=== PATIENT | female | born 1955 | race Caucasian/White ===

== ENCOUNTER → 2017-05-06 | Outpatient (CLI) | payer OTHER | LOC: FIMAGING 10:17 | PROVIDERS: ATTEND Internal Medicine Interventional Cardiology | DX: E78.5 Hyperlipidemia, unspecified (principal) ==

== ENCOUNTER → 2017-05-28 | Outpatient (CLI) | payer OTHER | LOC: FIMAGING 12:02 | PROVIDERS: ATTEND Family Medicine | DX: Z12.31 Encounter for screening mammogram for malignant neoplasm of breast (principal); Z80.3 Family history of malignant neoplasm of breast | CPT/HCPCS: G0202 ==

== ENCOUNTER → 2017-10-17 | Outpatient (CLI) | payer OTHER | LOC: FIMAGING 12:26 | PROVIDERS: ATTEND Psychiatry & Neurology Neurology | DX: G40.209 Localization-related (focal) (partial) symptomatic epilepsy and epileptic syndromes with complex partial seizures, not intractable, without status epilepticus (principal) ==

== ENCOUNTER → 2018-06-06 | Outpatient (CLI) | payer OTHER | LOC: FIMAGING 12:04 | PROVIDERS: ATTEND Family Medicine | DX: Z12.31 Encounter for screening mammogram for malignant neoplasm of breast (principal); Z80.3 Family history of malignant neoplasm of breast ==

== ENCOUNTER → 2018-10-17 | Outpatient (CLI) | payer OTHER | LOC: FIMAGING 10:47 | PROVIDERS: ATTEND Family Medicine | DX: N63.11 Unspecified lump in the right breast, upper outer quadrant (principal); R59.0 Localized enlarged lymph nodes ==

== ENCOUNTER → 2018-11-03 | Outpatient (CLI) | payer OTHER ==
[~2018-11-03] MED LIST: BUPIVACAINE 0.5% 30 ML SDV ONE; LIDOCAINE 1% 300 MG/30 ML SDV ONE; THROMBIN (BOVINE) 5,000 UNIT VIAL TP ONE
== END ==
LOC: FIMAGING 07:28
PROVIDERS: ATTEND Family Medicine
PROC: 0HBT3ZX Excision of Right Breast, Percutaneous Approach, Diagnostic (ICD-10-PCS; principal; 2018-11-03)
DX: D05.01 Lobular carcinoma in situ of right breast (principal)

== ENCOUNTER → 2018-11-12 | Outpatient (CLI) | payer OTHER ==
[~2018-11-12] MED LIST changes: -BUPIVACAINE 0.5% 30 ML SDV ONE; +GADOBUTROL 10 ML VIAL IVP ONE; -LIDOCAINE 1% 300 MG/30 ML SDV ONE; -THROMBIN (BOVINE) 5,000 UNIT VIAL TP ONE
== END ==
LOC: FIMAGING 07:44
PROVIDERS: ATTEND Family Medicine
DX: C50.911 Malignant neoplasm of unspecified site of right female breast (principal); R59.0 Localized enlarged lymph nodes
CPT/HCPCS: A9585; C8908

== ENCOUNTER 2018-12-11 06:37 | Observation (INO) | payer OTHER ==
[2018-12-11] MEDS ORDERED: LR 1,000 ML IV ONE (06:50)
[2018-12-11] MEDS ORDERED: BACITRACIN ZINC 0.5 OZ OINTTUBE TP ONE (07:19)
[2018-12-11] MEDS ORDERED: METHYLENE BLUE 0.5% 50 MG/10 ML AMP ONE (07:20)
[2018-12-11] MEDS ORDERED: GENTAMICIN SULFATE 80 MG/2 ML VIAL ONE (07:20)
[2018-12-11] MEDS ORDERED: BACITRACIN 50,000 UNITS/10 ML SYR IRR ONE (07:21)
[2018-12-11] MEDS ORDERED: ceFAZolin 1 GM/5 ML SYR ONE (07:21)
--- NOTE | 2018-12-11 07:59 | PDHPUP ---
History & Physical Update H&P update statement: This history and physical update is based on an assessment of the patient which was completed after admission or registration (within 24 hours), but prior to the surgery/procedure. H&P update: H&P reviewed & patient examined, no change in patient's condition since H&P completed
[2018-12-11] MEDS ORDERED: MIDAZOLAM 2 MG/2 ML VIAL IVP ONE (08:40)
--- NOTE | 2018-12-11 08:40 | PDANEPAE ---
ANE History of Present Illness here for R breast mastectomy ANE Past Medical History - Cardiovascular History Hx Hypertension: No Hx Arrhythmias: No Hx Chest Pain: No Hx Coronary Artery / Peripheral Vascular Disease: No Hx CHF / Valvular Disease: No Hx Palpitations: No - Pulmonary History Hx COPD: No Hx Asthma/Reactive Airway Disease: No Hx Recent Upper Respiratory Infection: No Hx Oxygen in Use at Home: No Hx Sleep Apnea: No Sleep Apnea Screening Result - Last Documented: Negative Pulmonary History Comment: PNA 20 YRS AGO - Neurologic History Hx Cerebrovascular Accident: No Hx Seizures: No Hx Dementia: No Neurologic History Comment: SEIZURE DISORDER - LAST ONE YR AGO - Endocrine History Hx Diabetes: No - Renal History Hx Renal Disorders: No - Liver History Hx Hepatic Disorders: No - Neurological & Psychiatric Hx Hx Neurological and Psychiatric Disorders: No - Cancer History Hx Cancer: No Cancer History Comment: BREAST SURG. MOHS - Congenital Disorder History Hx Congenital Disorders: No - GI History Hx Gastrointestinal Disorders: No - Other Health History Other Health History: NEG - Chronic Pain History Chronic Pain: No - Surgical History Prior Surgeries: L TONIE. C SECTION ANE Review of Systems Review of systems is: negative Review of Systems: - Exercise capacity Exercise capacity: <4 METS METS (RN): 6 METS ANE Patient History - Allergies Allergies/Adverse Reactions: No Known Allergies Allergy (Verified 12/10/18 14:04) - Home Medications Home medications: home medication list seen and reviewed Home Medications: Acetaminophen [Tylenol 325mg (*)] 325 mg PO DAILY PRN 12/10/18 [Last Taken Unknown] Atorvastatin Calcium [Lipitor 40 mg (*)] 40 mg PO DAILY 12/10/18 [Last Taken Unknown] Citalopram [CeleXA] 20 mg PO DAILY 12/10/18 [Last Taken Unknown] levETIRAcetam [Keppra 500 mg (*)] 100 mg PO DAILY 12/10/18 [Last Taken Unknown] - NPO status NPO Status: no food or drink >8 hours NPO Since - Liquids (Date): 12/10/18 NPO Since - Liquids (Time): 17:00 NPO Since - Solids (Date): 12/10/18 NPO Since - Solids (Time): 20:00 - Smoking Hx Smoking Status: Former smoker - Family Anes Hx Family Hx Anesthesia Complications: NEG ANE Labs/Vital Signs - Vital Signs Vital Signs: reviewed preoperatively; see RN documention for details Blood Pressure: 120/85 Heart Rate: 80 Respiratory Rate: 16 O2 Sat (%): 91 Height: 168.28 cm Weight: 72.575 kg ANE Physical Exam - Airway Neck exam: FROM Mallampati Score: Class 1 Mouth exam: normal dental/mouth exam - Pulmonary Pulmonary: no respiratory distress - Cardiovascular Cardiovascular: regular rate and rhythym - ASA Status ASA Status: II ANE Anesthesia Plan Anesthesia Plan: GA w LMA
[2018-12-11] MEDS ORDERED: DEXAMETHASONE 4 MG/ML VIAL IVP PRN ×2 (08:41→13:04)
[2018-12-11] MEDS ORDERED: HYDROCODONE/APAP 5/325 TAB PO PRN ×2 (08:41→13:04)
[2018-12-11] MEDS ORDERED: ONDANSETRON 4 MG/2 ML VIAL IVP PRN ×2 (08:41→13:04)
[2018-12-11] MEDS ORDERED: NS 500 ML IV PRN ×2 (08:41→13:04)
[2018-12-11] MEDS ORDERED: fentaNYL 100 MCG/2 ML INJ IVP PRN (08:41)
[2018-12-11] MEDS ORDERED: HYDROmorphONE/DILAUDID 1 MG/ML INJ IVP PRN (08:41)
[2018-12-11] MEDS ORDERED: oxyCODONE IR 5 MG TAB PO PRN ×2 (08:41→13:04)
[2018-12-11] MEDS ORDERED: LR 500 ML IV PRN ×2 (08:41→13:04)
[2018-12-11] MEDS ORDERED: ALBUTEROL 3 ML DEYVIAL IH PRN ×2 (08:41→13:04)
[2018-12-11] MEDS ORDERED: NALOXONE HCL 0.4 MG/ML INJ IVP PRN ×2 (08:41→13:04)
[2018-12-11] MEDS ORDERED: ACETAMINOPHEN 500 MG TAB PO PRN ×2 (08:41→13:04)
[2018-12-11] MEDS ORDERED: fentaNYL 100 MCG/2 ML INJ ONE ×3 (09:44→13:42)
[2018-12-11] MEDS ORDERED: PROPOFOL/EMULSION 500 MG/50 ML BOTTLE IV ONE ×4 (09:44→11:51)
[2018-12-11] MEDS ORDERED: ePHEDrine SULFATE 25 MG/5 ML SYR ONE (10:11)
[2018-12-11] MEDS ORDERED: ceFAZolin 1 GM VIAL ONE ×2 (10:15)
[2018-12-11] MEDS ORDERED: DEXAMETHASONE 4 MG/ML VIAL ONE (12:21)
[2018-12-11] MEDS ORDERED: ONDANSETRON 4 MG/2 ML VIAL ONE (12:21)
[2018-12-11] MEDS ORDERED: PROMETHAZINE HCL 25 MG/ML INJ IVP PRN (13:04)
--- NOTE | 2018-12-11 13:14 | POSTOPPROG ---
Post Op Note Date of Operation: 12/11/18 Surgeon: Geovanni Cordova Senior Product Development Engineer: Franky DUDLEY Anesthesiologist: Ottoniel Salas MD Anesthesia: GET(General Endotracheal) Pre-op Diagnosis: Right Breast cancer Post-op Diagnosis: Same Indication: right breast cancer Procedure: Tissue segment producer recon Inf/Abcess present in the surg proc area at time of surgery?: No EBL: Minimal (40cc) Total fluids administered: 1400cc Complications: none Bowel Protocol: No Clean Closure Performed: Yes Drains: Roe Garcia
[2018-12-11] MEDS ORDERED: ONDANSETRON DISINTEGRATING 4 MG TAB PO PRN (13:17)
--- NOTE | 2018-12-11 13:30 | POSTOPPROG ---
Post Op Note Date of Operation: 12/11/18 Surgeon: [facility] Chaplain: Selina Goodman PA-C Anesthesiologist: Ottoniel Salas MD Anesthesia: GET(General Endotracheal) Pre-op Diagnosis: right lobular breast cancer Post-op Diagnosis: same Procedure: right skin sparring mastectomy with SLN BX, completion AXLND Findings: positive sln Inf/Abcess present in the surg proc area at time of surgery?: No EBL: 50-100 Specimen(s): right breast sln right axillary contents
--- NOTE | 2018-12-11 13:39 | GOP ---
[f rep st] OPERATIVE REPORT DATE OF OPERATION: 12/11/2018 SURGEON: Geovanni Cordova MD ICT CUSTOMER SUPPORT OFFICER: Franky Cleary, WATER VALVE MECHANIC. ANESTHESIA: General endotracheal. ANESTHESIOLOGIST: Ottoniel Salas MD. PREOPERATIVE DIAGNOSIS: Right breast cancer. POSTOPERATIVE DIAGNOSIS: Right breast cancer. PROCEDURE PERFORMED: Right breast reconstruction with tissue undraped artist model and AlloDerm. FINDINGS: Right mastectomy. SPECIMENS: None. ESTIMATED BLOOD LOSS: Was 40 cc. DESCRIPTION OF PROCEDURE: Ms. Sawyer was met previously in our office where the risks and benefits were discussed with her at length which include, but are not limited to, infection, bleeding, hematom a, seroma, poor cosmesis, poor wound healing, mastectomy skin flap necrosis, paresthesias and need fo r further revision surgeries. She is agreeable to this and therefore signed the operative consent. Prior to going into the operating room she received 2 g of Ancef perioperatively for antibiotic proph ylaxis as well as SCDs for DVT prophylaxis. Due to length of the case, a [place] was not placed. Prio r to going asleep all in the room agreed upon the site and the procedure to be performed. The right mastectomy part will be dictated by my colleague, Dr. Kali Carpio. We began the procedure on the pa peter's right side. We examined the skin mastectomy flaps, were deemed to be viable. We washed out and cauterized any bleeding with electrocautery. We began by raising the pectoralis major muscle off its lateral border to develop the subpectoral pocket. This was developed superiorly as well as medi ally and then detached the inferior border of the pectoralis major muscle inferiorly off the chest wa ll with electrocautery. We then measured the base width and deemed this to be about 14 cm. We there fore chose a 133-MX-14-T tissue undraped artist model. Prior to this we outlined the rest of the subpectoral pock et with methylene blue, which included the inframammary fold as well as the lateral chest wall. We u sed a large contour piece of AlloDerm, thick piece. This was then cut and contoured and sewn into th e patient's existing inframammary fold as well as lateral chest wall to complete subpectoral pocket. The pocket was then washed out with copious amounts of saline and then triple-antibiotic saline. My administrative assistant office manager and I then changed our gloves. We then took all the air out of the tissue undraped artist model in a c losed sterile fashion. This was then placed within the subpectoral pocket, and sewn down to the ches t wall to confirm correct orientation with 2-0 PDS sutures to the undraped artist model tabs. This subpectoral po cket was then completely sewn up by suturing the superior border of the AlloDerm to the inferior bord er of the pectoralis major muscle with 2-0 Vicryl sutures. Two 15 [place] ZHOU drains were then placed, 1 within the axilla, 1 within the inferior IMF, and sutured to the skin with 2-0 silk sutures. We t hen loosely stapled the skin back together in order to measure the tension during the expansion. We then expanded the undraped artist model to 250 cc with methylene-infused sterile saline, taking care to not put an y undue tension on the skin flaps. We then closed the skin complexly with 3-0 Monocryl and skin stap les. The wound was then dressed with bacitracin, Xeroform, fluffs and placed in a surgical support b ra. The count was correct at the end of the case. There were no immediate complications. She was a woken and taken to PACU in good condition. IV FLUIDS: 1400. COMPLICATIONS: None. /[id number]/MODL
[2018-12-11] MEDS: fentaNYL 100 MCG/2 ML INJ IVP PRN ×2 (13:45→13:57)
--- NOTE | 2018-12-11 14:19 | GOP ---
[f rep st] OPERATIVE REPORT DATE OF OPERATION: 12/11/2018 SURGEON: Kali Carpio MD PATROL SERGEANT: Selina Goodman PA-C Use of a PA for assistance in this case is standard and required for the safety and efficiency of this case. ANESTHESIA: General endotracheal anesthesia was used. ANESTHESIOLOGIST: Ottoniel Salas MD. PREOPERATIVE DIAGNOSIS: Lobular breast cancer, right upper outer quadrant. POSTOPERATIVE DIAGNOSIS: Lobular breast cancer, right upper outer quadrant with positive sentinel lymph node. PROCEDURE PERFORMED: Right mastectomy, sentinel lymph node biopsy with then completion axillary node dissection. Immediate reconstruction is going to be done by Dr. Cordova. FINDINGS: Positive sentinel lymph node. Multiple hard nodes within the right axilla. Complete axillary node contents removed. SPECIMENS: Right breast, right sentinel lymph node and right axillary contents. DESCRIPTION OF PROCEDURE: Patient was brought into the operating room. After induction of endotracheal anesthesia, her chest was prepped with chlorhexidine and draped sterilely. Time-out procedure was then performed according to institutional standards. The patient had previously been marked by Plastics surgery for reconstruction and skin sparing mastectomy was elected. An elliptical incision was made to include the nipple and areolar complex, and the breast tissue was dissected away from the skin at the level of Koko's ligaments using electrocautery. Skin flaps were created superiorly to the clavicle, inferior to the inframammary fold, medially to the breast bone and laterally to the edge of the chest wall. The breast was then elevated from the chest wall including the fascia of the pectoralis muscle using electrocautery. Hemostasis was assured. After removing the breast completely, the sentinel lymph node was identified in the subpectoral position on the lateral aspect of the pectoralis muscle on the right. This area was dissected out and sent for frozen section. The hard node was found to be positive with cancer, and therefore a completion axillary node dissection was performed. The axillary vein is identified and cleared at the superior aspect of the axilla, identifying the long thoracic nerve and artery, as well as the thoracodorsal nerve and artery. The axillary contents are swept from the axilla, ensuring to keep the intracostal brachial nerve intact. After insuring hemostasis with Ligaclips and electrocautery, the case was then turned over to Dr. Cordova for his immediate reconstruction. This is a 62-year-old patient who presents with a lobular cancer of the right breast and subpectoral lymph node, thought to be sentinel lymph node. COMPLICATIONS: None. /[id number]/MODL MTDD
[2018-12-11] MEDS ORDERED: HYDROmorphONE/DILAUDID 1 MG/ML INJ ONE (14:26)
[2018-12-11] MEDS: HYDROmorphONE/DILAUDID 1 MG/ML INJ IVP PRN ×5 (14:32→15:45)
--- NOTE | 2018-12-11 14:47 | POSTANESTH ---
Post Anesthetic Evaluation Cardiovascular Status: Normal, Stable Respiratory Status: Normal, Stable Level of Consciousness/Mental Status: Can Participate in Eval Pain Control: Adequate, Prn Tx Ordered Nausea/Vomiting Control: Adequate, Prn Tx Ordered
[2018-12-11] MEDS: CYCLOBENZAPRINE 10 MG TAB PO SCH ×2 (16:29→21:04)
[2018-12-11] MEDS: OXYCODONE/APAP 5/325 TAB PO PRN (17:24)
[2018-12-11] MEDS: ceFAZolin 2 GM/DEXTROSE 100 ML IV SCH (19:09)
[2018-12-11] MEDS: IBUPROFEN 600 MG TAB PO PRN (20:57)
[2018-12-12] MEDS: OXYCODONE/APAP 5/325 TAB PO PRN (00:21)
[2018-12-12] MEDS: ceFAZolin 2 GM/DEXTROSE 100 ML IV SCH ×2 (02:26→08:36)
[2018-12-12] MEDS: IBUPROFEN 600 MG TAB PO PRN ×3 (03:19→15:07)
[2018-12-12] MEDS: CYCLOBENZAPRINE 10 MG TAB PO SCH ×2 (08:36→15:49)
[2018-12-12] MEDS ORDERED: KEPPRA PO SCH (09:00)
[2018-12-12] MEDS ORDERED: CITALOPRAM 20 MG TAB PO SCH (09:00)
[2018-12-12] MEDS ORDERED: levETIRAcetam 500 MG TAB PO SCH (09:00)
[2018-12-12 15:22] VITALS: BP 101/60
--- NOTE | 2018-12-17 12:13 | GDS ---
[f rep st] DISCHARGE SUMMARY HOSPITAL COURSE: Patient is a 62-year-old female who underwent a right mastectomy with sentinel lymph node biopsy, with then complete axillary node dissection by Dr. Carpio. Immediate reconstruction was done by Dr. Cordova. She had an overall uneventful postoperative course. She was discharged to home on the following day in good condition. She was tolerating p.o. medications and her pain was well managed. She was instructed to restart all her home medications. She has no activity restrictions. Wound care instructions were explained per Dr. Cordova's office. She is to follow up with Dr. Cordova as scheduled. She will follow up with Dr. Carpio in 2 weeks. She knows to call with fevers, chills, wound concerns, pain not controlled with medication. HOME MEDICATIONS: Keppra, Celexa, Lipitor, and Tylenol. /[id number]/MODL MTDD
== END 2018-12-12 16:20 | disposition home or self-care (01) ==
LOC: F3E 06:37 → F1N 15:57
PROVIDERS: ADMIT Surgery; ATTEND Surgery
PROC: 07T50ZZ Resection of Right Axillary Lymphatic, Open Approach (ICD-10-PCS; principal; 2018-12-11 09:15)
PROC: 0HTT0ZZ Resection of Right Breast, Open Approach (ICD-10-PCS; principal; 2018-12-11 09:15)
PROC: 0HHT0NZ Insertion of Tissue Expander into Right Breast, Open Approach (ICD-10-PCS; principal; 2018-12-11 09:15)
DX: C50.911 Malignant neoplasm of unspecified site of right female breast (principal); G40.909 Epilepsy, unspecified, not intractable, without status epilepticus
CPT/HCPCS: A9520; G0378; J0690; J1100; J1170; J1580; J2250; J2405; J2704; J3010; Q4116; Q9968

== ENCOUNTER 2019-01-13 14:02 | Day surgery (SDC) | payer OTHER | END 2019-01-13 17:44 | disposition home or self-care (01) | LOC: FSGY 14:02 ==

== ENCOUNTER → 2019-01-14 | Outpatient (CLI) | payer OTHER | LOC: FIMAGING 10:09 ==

== ENCOUNTER → 2019-01-30 | Outpatient (CLI) | payer OTHER | LOC: FIMAGING 13:15 ==

== ENCOUNTER → 2019-01-30 | Outpatient (CLI) | payer OTHER | LOC: FIMAGING 13:10 ==